=== PATIENT | male | born 1990 | race African-American/Black ===

== ENCOUNTER 2020-10-01 18:29 | Inpatient (IN) ==
[2020-10-01] MEDS ORDERED: PANTOPRAZOLE INJ 80 MG in SODIUM CHLORIDE 0.9% 100 ML IV STA (18:54)
[2020-10-01] MEDS ORDERED: PANTOPRAZOLE 40 MG VIAL IV ONE (19:07)
[2020-10-01] MEDS ORDERED: oxyCODONE/ACETAMINOPHEN 5-325 MG TABLET PO STA (19:08)
[2020-10-01 19:44] LABS: Basophils % 0.3 % (0.0-0.8); Eosinophils # 0.2 10*3/uL (0.0-0.87); Eosinophils % 1.8 % (0.00-10.9); Hematocrit 39.8 VOL% (42.0-52.0); Hemoglobin 13.1 GM/DL (14.0-18.0); Immature Granulocytes % 0.4 %; Immature Granulocytes Absolute 0.04 #; Lymphocytes # 2.7 10*3/uL (1.4-4.0); Lymphocytes % 25.8 % (21.2-54.2); Mean Corpuscular HGB Conc 32.9 GM/DL (32-36); Mean Corpuscular Volume 94.3 FL (87-102); Mean Platelet Volume 8.6 FL (9.6-12.0); Monocytes % 9.2 % (1.7-12.7); Neutrophils % 62.5 % (38.7-73.9); Platelet Count 387 T/CUMM (130-400); Red Blood Count 4.22 MC/CUMM (3.8-5.5); White Blood Count 10.6 T/CUMM (4-12)
[2020-10-01 19:59] LABS: INR 1.2; PT Patient Result 12.9 SECS (10.5-12.0)
[2020-10-01 20:03] LABS: Alanine Aminotransferase 24 U/L (16-61); Albumin 3.1 G/DL (3.4-5.0); Alkaline Phosphatase 89 U/L (45-117); Aspartate Amino Transferase 20 U/L (0-37); Bilirubin,Total < 0.39 MG/DL (0.20-1.00); Blood Urea Nitrogen 17 MG/DL (7-18); Carbon Dioxide 31 MMOL/L (21-32); Estimated Glom Filtration Rate 150 ML/MIN; Glucose 101 MG/DL (74-106); Osmolality,Calculated 282.3 MOS/KG (273-304); Sodium 141 MMOL/L (136-145); Total Protein 6.6 G/DL (6.4-8.2)
[2020-10-01] MEDS ORDERED: ONDANSETRON 4 MG/2 ML VIAL IV STA (20:52)
[2020-10-01] MEDS ORDERED: MORPHINE 10 MG/1 ML VIAL IV STA (20:52)
[2020-10-01] MEDS ORDERED: MORPHINE 2 MG/1 ML SYRINGE ONE (21:01)
[2020-10-01] MEDS ORDERED: SODIUM CHLORIDE 0.9% 1,000 ML IV STA (21:03)
[2020-10-01] MEDS ORDERED: DEXTROSE 50% 25 GM/50 ML VIAL IV PRN (22:07)
[2020-10-01] MEDS ORDERED: GLUCAGON 1 MG VIAL IM PRN (22:07)
[2020-10-01] MEDS ORDERED: ONDANSETRON 4 MG/2 ML VIAL IV PRN (22:07)
[2020-10-01] MEDS: SODIUM CHLORIDE 0.9% 1,000 ML IV SCH (23:48)
[2020-10-02 00:07] LABS: Bacteria,Urine Many /HPF (Few); Bilirubin,Urine Negative (Negative); Blood, Urine Negative (Negative); Glucose,Urine (UA) Negative (Negative); Ketones,Urine Negative (Negative); Mucus,Urine Occasional /LPF (Occasional); Nitrite,Urine Negative (Negative); Protein,Urine Negative; RBC,Urine 2 /HPF (0-4); Urine Appearance Slightly Hazy (Clear); Urine Color Yellow (Yellow); Urine Specific Gravity 1.017 (1.001-1.035); Urine Urobilinogen < 2.0 EU/DL (0.2-1.0)
[2020-10-02 00:54] LABS: Hematocrit 35.6 VOL% (42.0-52.0); Hemoglobin 11.9 GM/DL (14.0-18.0)
[2020-10-02] MEDS: oxyCODONE IR 5 MG TABLET PO PRN ×2 (03:13→13:28)
[2020-10-02 05:24] LABS: Hematocrit 35.5 VOL% (42.0-52.0); Hemoglobin 12.1 GM/DL (14.0-18.0)
[2020-10-02 05:25] LABS: Basophils % 0.2 % (0.0-0.8); Eosinophils # 0.1 10*3/uL (0.0-0.87); Eosinophils % 1.2 % (0.00-10.9); Hematocrit 35.5 VOL% (42.0-52.0); Hemoglobin 12.1 GM/DL (14.0-18.0); Immature Granulocytes % 0.4 %; Immature Granulocytes Absolute 0.04 #; Lymphocytes # 2.3 10*3/uL (1.4-4.0); Lymphocytes % 21.8 % (21.2-54.2); Mean Corpuscular HGB Conc 34.1 GM/DL (32-36); Mean Corpuscular Volume 94.2 FL (87-102); Mean Platelet Volume 9.5 FL (9.6-12.0); Monocytes % 10.5 % (1.7-12.7); Neutrophils % 65.9 % (38.7-73.9); Platelet Count 326 T/CUMM (130-400); Red Blood Count 3.77 MC/CUMM (3.8-5.5); Red Cell Distribution Width 12.1 % (9.3-17.3); White Blood Count 10.4 T/CUMM (4-12)
[2020-10-02] MEDS: GABAPENTIN 300 MG CAPSULE PO SCH ×3 (05:53→18:53)
[2020-10-02 05:59] LABS: Osmolality,Calculated 279.3 MOS/KG (273-304); Potassium 3.9 MMOL/L (3.5-5.1)
[2020-10-02] MEDS ORDERED: PANTOPRAZOLE 40 MG VIAL IV SCH (09:00)
[2020-10-02] MEDS: PANTOPRAZOLE 40 MG TABLET PO SCH (10:27)
[2020-10-02] MEDS: METHOCARBAMOL 500 MG TABLET PO SCH ×3 (10:27→20:15)
[2020-10-02] MEDS: POLYETHYLENE GLYCOL POWDER 17 GM PACK PO SCH (10:29)
[2020-10-02] MEDS: cefTRIAXone 1,000 MG in SODIUM CHLORIDE 0.9% 100 ML IV SCH (10:34)
[2020-10-02 10:46] LABS: Hematocrit 35.5 VOL% (42.0-52.0); Hemoglobin 11.9 GM/DL (14.0-18.0)
[2020-10-02] MEDS: SODIUM CHLORIDE 0.9% 1,000 ML IV SCH ×2 (13:47→19:47)
[2020-10-02 16:58] LABS: Hematocrit 35.2 VOL% (42.0-52.0); Hemoglobin 12.2 GM/DL (14.0-18.0)
[2020-10-02] MEDS: SERTRALINE 50 MG TABLET PO SCH (20:15)
[2020-10-03] MEDS: oxyCODONE IR 5 MG TABLET PO PRN ×3 (00:55→20:58)
[2020-10-03] MEDS: SODIUM CHLORIDE 0.9% 1,000 ML IV SCH ×3 (05:18→20:58)
[2020-10-03] MEDS: GABAPENTIN 300 MG CAPSULE PO SCH ×3 (06:42→18:33)
[2020-10-03 07:39] LABS: Osmolality,Calculated 283.1 MOS/KG (273-304); Potassium 3.6 MMOL/L (3.5-5.1)
[2020-10-03 08:02] LABS: Basophils % 0.2 % (0.0-0.8); Eosinophils # 0.1 10*3/uL (0.0-0.87); Eosinophils % 1.2 % (0.00-10.9); Hematocrit 35.2 VOL% (42.0-52.0); Hemoglobin 12.1 GM/DL (14.0-18.0); Immature Granulocytes % 0.4 %; Immature Granulocytes Absolute 0.04 #; Lymphocytes # 1.7 10*3/uL (1.4-4.0); Lymphocytes % 16.3 % (21.2-54.2); Mean Corpuscular HGB Conc 34.4 GM/DL (32-36); Mean Corpuscular Volume 94.6 FL (87-102); Mean Platelet Volume 9.1 FL (9.6-12.0); Monocytes % 8.4 % (1.7-12.7); Neutrophils % 73.5 % (38.7-73.9); Platelet Count 323 T/CUMM (130-400); Red Blood Count 3.72 MC/CUMM (3.8-5.5); Red Cell Distribution Width 12.3 % (9.3-17.3); White Blood Count 10.5 T/CUMM (4-12)
[2020-10-03] MEDS: METHOCARBAMOL 500 MG TABLET PO SCH ×3 (08:21→20:56)
[2020-10-03] MEDS: PANTOPRAZOLE 40 MG TABLET PO SCH (08:21)
[2020-10-03] MEDS: POLYETHYLENE GLYCOL POWDER 17 GM PACK PO SCH (08:21)
[2020-10-03] MEDS: cefTRIAXone 1,000 MG in SODIUM CHLORIDE 0.9% 100 ML IV SCH (10:31)
[2020-10-03] MEDS: SERTRALINE 50 MG TABLET PO SCH (20:56)
[2020-10-04] MEDS: oxyCODONE IR 5 MG TABLET PO PRN ×2 (06:47→21:04)
[2020-10-04] MEDS: GABAPENTIN 300 MG CAPSULE PO SCH ×3 (06:47→19:33)
[2020-10-04] MEDS: METHOCARBAMOL 500 MG TABLET PO SCH ×3 (09:31→21:04)
[2020-10-04] MEDS: SODIUM CHLORIDE 0.9% 1,000 ML IV SCH ×3 (09:31→23:20)
[2020-10-04] MEDS: cefTRIAXone 1,000 MG in SODIUM CHLORIDE 0.9% 100 ML IV SCH (09:31)
[2020-10-04] MEDS: ASPIRIN CHEW 81 MG TABLET PO SCH (09:32)
[2020-10-04] MEDS: PANTOPRAZOLE 40 MG TABLET PO SCH (09:32)
[2020-10-04] MEDS: POLYETHYLENE GLYCOL POWDER 17 GM PACK PO SCH (09:32)
[2020-10-04] MEDS ORDERED: TUBERCULIN SKIN TEST 0.1 ML SYRINGE INTRADERM ONE (10:00)
[2020-10-04] MEDS: SERTRALINE 50 MG TABLET PO SCH (21:02)
[2020-10-05 04:50] LABS: Basophils % 0.1 % (0.0-0.8); Eosinophils # 0.2 10*3/uL (0.0-0.87); Eosinophils % 3.1 % (0.00-10.9); Hematocrit 34.9 VOL% (42.0-52.0); Hemoglobin 11.4 GM/DL (14.0-18.0); Immature Granulocytes % 0.4 %; Immature Granulocytes Absolute 0.03 #; Lymphocytes # 2.3 10*3/uL (1.4-4.0); Lymphocytes % 29.4 % (21.2-54.2); Mean Corpuscular HGB Conc 32.7 GM/DL (32-36); Mean Corpuscular Volume 96.1 FL (87-102); Mean Platelet Volume 8.8 FL (9.6-12.0); Monocytes % 11.3 % (1.7-12.7); Neutrophils % 55.7 % (38.7-73.9); Platelet Count 269 T/CUMM (130-400); Red Blood Count 3.63 MC/CUMM (3.8-5.5); White Blood Count 7.8 T/CUMM (4-12)
[2020-10-05] MEDS: oxyCODONE IR 5 MG TABLET PO PRN ×2 (06:07→21:15)
[2020-10-05] MEDS: GABAPENTIN 300 MG CAPSULE PO SCH ×3 (06:08→18:14)
[2020-10-05] MEDS: PANTOPRAZOLE 40 MG TABLET PO SCH (08:54)
[2020-10-05] MEDS: cefTRIAXone 1,000 MG in SODIUM CHLORIDE 0.9% 100 ML IV SCH (08:54)
[2020-10-05] MEDS: ASPIRIN CHEW 81 MG TABLET PO SCH (08:54)
[2020-10-05] MEDS: METHOCARBAMOL 500 MG TABLET PO SCH ×3 (08:54→21:11)
[2020-10-05] MEDS: POLYETHYLENE GLYCOL POWDER 17 GM PACK PO SCH (08:54)
[2020-10-05] MEDS: SODIUM CHLORIDE 0.9% 1,000 ML IV SCH ×3 (09:34→21:18)
[2020-10-05] MEDS: SERTRALINE 50 MG TABLET PO SCH (19:17)
[2020-10-06] MEDS: SODIUM CHLORIDE 0.9% 1,000 ML IV SCH ×2 (02:05→12:21)
[2020-10-06] MEDS: GABAPENTIN 300 MG CAPSULE PO SCH ×3 (05:46→18:18)
[2020-10-06] MEDS: PANTOPRAZOLE 40 MG TABLET PO SCH (08:43)
[2020-10-06] MEDS: oxyCODONE IR 5 MG TABLET PO PRN ×2 (08:43→15:45)
[2020-10-06] MEDS: METHOCARBAMOL 500 MG TABLET PO SCH ×3 (08:43→21:10)
[2020-10-06] MEDS: ASPIRIN CHEW 81 MG TABLET PO SCH (08:43)
[2020-10-06] MEDS: cefTRIAXone 1,000 MG in SODIUM CHLORIDE 0.9% 100 ML IV SCH ×2 (08:44→10:32)
[2020-10-06] MEDS: POLYETHYLENE GLYCOL POWDER 17 GM PACK PO SCH (08:44)
[2020-10-06] MEDS: ALBUTEROL/IPRATROPIUM 3 ML NEB RESP TX PRN (16:50)
[2020-10-06] MEDS: SERTRALINE 50 MG TABLET PO SCH (21:10)
[2020-10-06] MEDS: ZALEPLON 5 MG CAPSULE PO PRN (21:10)
[2020-10-07] MEDS: oxyCODONE IR 5 MG TABLET PO PRN ×2 (01:29→16:25)
[2020-10-07] MEDS: cefTRIAXone 1,000 MG in SODIUM CHLORIDE 0.9% 100 ML IV SCH (01:29)
[2020-10-07] MEDS: ACETAMINOPHEN 325 MG TABLET PO PRN ×2 (01:29→16:16)
[2020-10-07 01:59] LABS: Basophils % 0.2 % (0.0-0.8); Eosinophils # 0.2 10*3/uL (0.0-0.87); Eosinophils % 1.8 % (0.00-10.9); Hematocrit 36.7 VOL% (42.0-52.0); Hemoglobin 12.2 GM/DL (14.0-18.0); Immature Granulocytes % 0.5 %; Immature Granulocytes Absolute 0.05 #; Lymphocytes % 19.7 % (21.2-54.2); Mean Corpuscular HGB Conc 33.2 GM/DL (32-36); Mean Corpuscular Volume 94.8 FL (87-102); Mean Platelet Volume 8.5 FL (9.6-12.0); Monocytes % 8.4 % (1.7-12.7); Neutrophils % 69.4 % (38.7-73.9); Platelet Count 319 T/CUMM (130-400); Red Blood Count 3.87 MC/CUMM (3.8-5.5); Red Cell Distribution Width 12.1 % (9.3-17.3); White Blood Count 9.9 T/CUMM (4-12)
[2020-10-07] MEDS: SODIUM CHLORIDE 0.9% 1,000 ML IV SCH ×3 (02:02→18:30)
[2020-10-07 02:29] LABS: Alanine Aminotransferase 16 U/L (16-61); Albumin 2.8 G/DL (3.4-5.0); Alkaline Phosphatase 83 U/L (45-117); Aspartate Amino Transferase 20 U/L (0-37); Bilirubin,Total < 0.39 MG/DL (0.20-1.00); Blood Urea Nitrogen 6 MG/DL (7-18); Calcium 9.3 MG/DL (8.5-10.1); Carbon Dioxide 30 MMOL/L (21-32); Estimated Glom Filtration Rate 151 ML/MIN; Glucose 126 MG/DL (74-106); Osmolality,Calculated 272.8 MOS/KG (273-304); Potassium 3.9 MMOL/L (3.5-5.1); Sodium 137 MMOL/L (136-145)
[2020-10-07 05:06] LABS: Hematocrit 37.4 VOL% (42.0-52.0); Hemoglobin 12.5 GM/DL (14.0-18.0)
[2020-10-07] MEDS: GABAPENTIN 300 MG CAPSULE PO SCH ×3 (06:01→19:36)
[2020-10-07] MEDS: POLYETHYLENE GLYCOL POWDER 17 GM PACK PO SCH (09:33)
[2020-10-07] MEDS: METHOCARBAMOL 500 MG TABLET PO SCH ×3 (09:33→20:22)
[2020-10-07] MEDS: ASPIRIN CHEW 81 MG TABLET PO SCH (09:33)
[2020-10-07] MEDS: PANTOPRAZOLE 40 MG TABLET PO SCH (09:33)
[2020-10-07] MEDS: ALBUTEROL/IPRATROPIUM 3 ML NEB RESP TX PRN (15:50)
[2020-10-07] MEDS: ZALEPLON 5 MG CAPSULE PO PRN (20:22)
[2020-10-07] MEDS: SERTRALINE 50 MG TABLET PO SCH (20:22)
[2020-10-08] MEDS: ACETAMINOPHEN 325 MG TABLET PO PRN ×3 (00:47→20:43)
[2020-10-08] MEDS: cefTRIAXone 1,000 MG in SODIUM CHLORIDE 0.9% 100 ML IV SCH (01:00)
[2020-10-08] MEDS: SODIUM CHLORIDE 0.9% 1,000 ML IV SCH ×2 (03:38→20:44)
[2020-10-08 05:17] LABS: Basophils % 0.2 % (0.0-0.8); Eosinophils # 0.2 10*3/uL (0.0-0.87); Eosinophils % 1.8 % (0.00-10.9); Hematocrit 36.5 VOL% (42.0-52.0); Immature Granulocytes % 0.2 %; Immature Granulocytes Absolute 0.02 #; Lymphocytes # 1.7 10*3/uL (1.4-4.0); Lymphocytes % 16.9 % (21.2-54.2); Mean Corpuscular HGB Conc 32.9 GM/DL (32-36); Mean Corpuscular Volume 95.8 FL (87-102); Mean Platelet Volume 8.7 FL (9.6-12.0); Monocytes % 9.1 % (1.7-12.7); Neutrophils % 71.8 % (38.7-73.9); Platelet Count 318 T/CUMM (130-400); Red Blood Count 3.81 MC/CUMM (3.8-5.5); White Blood Count 10.3 T/CUMM (4-12)
[2020-10-08 05:19] LABS: Calcium 9.2 MG/DL (8.5-10.1); Osmolality,Calculated 271.8 MOS/KG (273-304); Potassium 3.6 MMOL/L (3.5-5.1)
[2020-10-08 05:41] LABS: Eosinophils 3 % (0-10); Hypochromasia 1+; Lymphocytes 20 % (20-55); Microcytosis 1+; Platelet Estimate Adequate; Segmented Neutrophils 74 % (50-85); Total Cells Counted 100
[2020-10-08] MEDS: GABAPENTIN 300 MG CAPSULE PO SCH ×3 (06:12→18:28)
[2020-10-08] MEDS: ASPIRIN CHEW 81 MG TABLET PO SCH (10:00)
[2020-10-08] MEDS: METHOCARBAMOL 500 MG TABLET PO SCH ×3 (10:01→20:44)
[2020-10-08] MEDS: PANTOPRAZOLE 40 MG TABLET PO SCH (10:01)
[2020-10-08] MEDS: oxyCODONE IR 5 MG TABLET PO PRN ×2 (10:02→20:50)
[2020-10-08] MEDS: POLYETHYLENE GLYCOL POWDER 17 GM PACK PO SCH (14:00)
[2020-10-08] MEDS ORDERED: COLLAGENASE OINT 30 GM TUBE TOP PRN (14:15)
[2020-10-08] MEDS: ZALEPLON 5 MG CAPSULE PO PRN (20:43)
[2020-10-08] MEDS: SERTRALINE 50 MG TABLET PO SCH (20:44)
[2020-10-08] MEDS: ALBUTEROL/IPRATROPIUM 3 ML NEB RESP TX PRN (21:10)
[2020-10-09] MEDS: cefTRIAXone 1,000 MG in SODIUM CHLORIDE 0.9% 100 ML IV SCH (02:20)
[2020-10-09] MEDS: SODIUM CHLORIDE 0.9% 1,000 ML IV SCH (02:27)
[2020-10-09] MEDS: oxyCODONE IR 5 MG TABLET PO PRN ×2 (04:59→12:20)
[2020-10-09] MEDS: GABAPENTIN 300 MG CAPSULE PO SCH (06:07)
[2020-10-09] MEDS: METHOCARBAMOL 500 MG TABLET PO SCH (10:10)
[2020-10-09] MEDS: ASPIRIN CHEW 81 MG TABLET PO SCH (10:10)
[2020-10-09] MEDS: PANTOPRAZOLE 40 MG TABLET PO SCH (10:10)
[2020-10-09] MEDS: POLYETHYLENE GLYCOL POWDER 17 GM PACK PO SCH (10:12)
[2020-10-09 11:10] VITALS: BP 106/59
== END 2020-10-09 14:14 | disposition home health service (06) | DRG 377 ==
LOC: EDUNIT# → EDBD → N.ED 18:29 → N.EDINP 18:29 → SUATTDRO 22:07 → N.3E 10-02 00:02
PROVIDERS: ADMIT Internal Medicine; ATTEND Hospitalist